=== PATIENT | female | born 1995 | race Caucasian/White ===

== ENCOUNTER 2025-05-06 14:29 | Emergency (ER) | payer OTHER, SELFPAY ==
[2025-05-06 14:31] VITALS: BP 152/84
--- NOTE | 2025-05-06 17:33 | ED.GENMED ---
History of Present Illness
General
Chief Complaint: Musculo-Skeletal Complaint
Time Seen by Provider: 05/06/25 17:03
History of Present Illness
History of Present Illness:
30-year-old female presents to the emergency department for evaluation of right scapular/trapezius and chest pain for the past week. Pain is pleuritic and worse when lying flat. She had similar symptoms 1 week ago to the left side that
spontaneously resolved. Notes that approximately 2 to 3 weeks prior she did have viral URI symptoms that resolved without incident. No associated fevers or chills currently. Denies hemoptysis or shortness of breath. No calf pain or leg swelling.
Does take oral hormonal contraceptives. No recent travel or prolonged immobilization
Review of Systems
Review of Systems
Allergies reviewed?: Yes
All Other Systems: ROS reviewed and negative except as documented in HPI and ROS
Phy Exam
Physical Exam
Physical Exam:
GEN: Well appearing, NAD, WDWN
HEENT: Oral mucosa moist, no scleral icterus
Cardiac: Tachycardic, regular rhythm, no murmur, lungs clear to auscultation
Lung: No respiratory distress, no tachypnea
MSK: No gross deformity or injuries, no reproducible pain to the affected areas in the chest wall/torso, no lower extremity edema
Skin: Good color, no pallor or jaundice, no rashes
Neuro: AO x3, moves all extremities freely
Psych: Calm, cooperative
Course
Orders/Labs/Results
Orders:
Orders
05/06/25 14:35
EKG [Electrocardiogram (*1)] Urgent
Reason for Study: Tachycardia
05/06/25 14:36
EKG- Treatment ONCE
05/06/25 17:33
Test Result ONCE
05/06/25 18:09
Complete Blood Count/With Diff Urgent
Comprehensive Metabolic Panel Urgent
D-Dimer Urgent
HCG, Serum Qualitative Screen Urgent
05/06/25 18:34
Ketorolac [Toradol] 15 mg IV NOW STA
05/06/25 19:09
CT Chest PE Study Urgent
Comment:
Reason For Exam: pleuritic chest pain elevated d dimer
05/06/25 19:37
NT-proBNP Urgent
Troponin I Routine
05/06/25 19:38
Oxycodone [Roxicodone] 5 mg PO NOW STA
05/06/25 19:44
Apixaban [Eliquis] 10 mg PO NOW STA
Abnormal Lab Results
05/06/25
18:09
WBC 11.5 H 10^3/uL
(4.8-10.8)
Abs Immat Gran (auto) 0.1 H 10^3/uL
(0-0.05)
Absolute Neuts (auto) 7.0 H 10^3/uL
(1.4-6.5)
Absolute Monos (auto) 0.8 H 10^3/uL
(0.1-0.6)
D-Dimer 1.52 H ug/mlFEU
(0.00-0.50)
ALT 42 H U/L
(0-35)
05/06/25 18:09
05/06/25 18:09
Vital Signs
Initial and Last Documented VS:
Initial Vital Signs
Temp Pulse Resp BP Pulse Ox
98.2 F 121 18 152/84 99
05/06/25 14:31 05/06/25 14:31 05/06/25 14:31 05/06/25 14:31 05/06/25 14:31
Last Documented Vital Signs
Temp Pulse Resp BP Pulse Ox
98.2 F 121 18 136/82 99
05/06/25 14:31 05/06/25 14:31 05/06/25 14:31 05/06/25 21:06 05/06/25 21:06
MDM/Problems Addressed
MDM/Problems Addressed:
Unfortunately the patient is found to have bilateral pulmonary embolisms. Her pain is due to the pulmonary infarct. She is hemodynamically stable with no evidence for heart strain and thus is reasonable for outpatient management. Pain did improve
after opiate administration. Initiated on Eliquis therapy in the ED, will refer to pulmonology through the low risk PE hotline for close outpatient follow-up. Provided with savings card for this at time of discharge
Comment
Comment:
EKG independently interpreted by me shows sinus tachycardia at a rate of 118 with slight motion artifact but no obvious ST changes concerning for ischemia
*Pulse Oximetry
SaO2: 99
Oxygen Mode of Delivery: Room air
Patient hypoxic: no
*Critical Care Note
Total Time (30-74mins, 75-104mins- exclusive of procedures): Not Applicable
ED Attending Note
-
Portions of this chart may have been created with voice recognition software.� Occasional wrong word or��sound alike� substitutions may have occurred due to the inherent limitations of voice recognition software.
Discharge Plan
Departure
Patient Disposition: Home (Routine Discharge)
Date of Disposition: 05/06/25
Time of Disposition: 20:49
Patient with high blood pressure during this ER visit?: No
Discharge Problem:
Bilateral pulmonary embolism
Instructions: Pulmonary embolism (blood clot in the lung), ED Low Risk PE
Prescriptions:
New
Eliquis 5 mg tablet
5 mg PO BID Qty: 74 0RF
Rx Instructions:
10mg PO BID x 7d then 5mg PO BID
oxycodone 5 mg tablet
5 mg PO Q8H PRN (Reason: Pain) Qty: 8 0RF
Referrals:
Gene Lackey MD [Active, Pulmonary Medicine] - Follow up in 2-3 days
Stand Alone Forms: Return to Work
Interventions
Interventions:
*Risk Screen - Suicide Last Done: 05/06/25 14:31
*General Assessment Last Done: 05/06/25 14:31
*Neglect/Abuse Screening Last Done: 05/06/25 14:31
*ED COVID-19 Vaccine History Last Done: 05/06/25 14:31
*ED Influenza Vaccine History Last Done: 05/06/25 14:31
[facility] Fall Risk Assessment Tool Last Done: 05/06/25 18:06
*Nursing Disposition Last Done: 05/06/25 21:06
ED-Musculoskeletal Assessment Last Done: 05/06/25 18:06
Discharge Date and Time
Discharge Date/Time: 05/06/25 21:00
Print Language: CANADIAN
[2025-05-06 18:06] VITALS: BMI 22.5
[2025-05-06 18:22] LABS: Hematocrit 39.7 % (37.0-47.0); Hemoglobin 13.5 g/dL (12.0-16.0); Mean Corp Hgb Conc. 34.0 g/dL (33.0-37.0); Mean Corpuscular Volume 85.9 fL (81.0-99.0); Nucleated Red Blood Cells % 0 %; Platelet Count 302 10^3/uL (130-400); Red Cell Dist. Width 12.2 % (11.5-14.5)
[2025-05-06 18:30] LABS: HCG, Serum Qualitative Screen Negative
[2025-05-06] MEDS: TORADOL 15 MG IV (18:36)
[2025-05-06 18:44] LABS: D-Dimer 1.52 ug/mlFEU (0.00-0.50)
[2025-05-06 18:47] LABS: ALT (SGPT) 42 U/L (0-35); AST (SGOT) 34 U/L (14-36); Albumin 4.2 g/dl (3.5-5.0); Alkaline Phosphatase 87 U/L (38-126); Blood Urea Nitrogen 13 mg/dl (7-17); Calcium 9.2 mg/dl (8.4-10.2); Carbon Dioxide 27 mmol/L (22-30); Chloride 101 mmol/L (98-107); Estimated Creatinine Clearance 123 ml/min; Glucose 95 mg/dl (70-99); Potassium 4.3 mmol/L (3.5-5.1); Sodium 135 mmol/L (135-145); Total Protein 7.5 g/dl (6.3-8.2); eGFR > 60.00
[2025-05-06] MEDS: ROXICODONE 5 MG PO (19:40)
[2025-05-06] MEDS: ELIQUIS 10 MG PO (19:48)
[2025-05-06 20:09] LABS: Troponin I < 0.012 ng/ml
[2025-05-06 21:06] VITALS: BP 136/82
== END 2025-05-06 21:00 | disposition home or self-care (01) ==
LOC: EMR 14:29
PROVIDERS: Physician Assistant; EMERGENCY PHYSICIAN Emergency Medicine
DX: I26.99 Other pulmonary embolism without acute cor pulmonale (principal)
CPT/HCPCS: 96374; 99284; 71275; 80053; 83880; 84484; 84703; 85025; 85379; 93005; Q9967

== ENCOUNTER → 2025-05-14 14:41 | Outpatient (REF) | payer OTHER, SELFPAY | LOC: DHVS 14:41 | PROVIDERS: ATTENDING PHYSICIAN Internal Medicine Critical Care Medicine; FAMILY PHYSICIAN Family Medicine | DX: I26.99 Other pulmonary embolism without acute cor pulmonale (principal); I82.90 Acute embolism and thrombosis of unspecified vein | CPT/HCPCS: 93970 ==